=== PATIENT | male | born 1985 | race African-American/Black ===

== ENCOUNTER 2022-05-23 23:59 | Emergency (ER) | payer MEDICAID ==
[~2022-05-23] VITALS: Ht 188 cm; Wt 92.0 kg
[2022-05-24 00:05] VITALS: BP 154/99
[2022-05-24] MEDS ORDERED: HYDROCODONE/ACETAMINOPHEN 5/325MG TABLET PO ONE (02:00)
[2022-05-24] MEDS ORDERED: PENI500T MT (02:36)
[2022-05-24] MEDS ORDERED: HYDR-4001 MT (02:36)
== END 2022-05-24 03:13 | disposition home or self-care (01) ==
LOC: ER 23:59
DX: K02.9 Dental caries, unspecified (principal)
CPT/HCPCS: 99283